=== PATIENT | female | born 1975 | race Two or more races ===

== ENCOUNTER 2019-03-08 12:31 | Emergency (ER) | payer SELFPAY ==
[~2019-03-08] VITALS: Ht 132.1 cm; Wt 68.0 kg
[2019-03-08 14:05] VITALS: BP 149/76
[2019-03-08] MEDS ORDERED: IBUPROFEN 800 MG TAB PO ONE (16:45)
== END 2019-03-08 17:06 | disposition home or self-care (01) ==
LOC: ER 12:31
DX: S39.012A Strain of muscle, fascia and tendon of lower back, initial encounter (principal); Z90.710 Acquired absence of both cervix and uterus; X50.1XXA Overexertion from prolonged static or awkward postures, initial encounter; Y93.89 Activity, other specified; Y99.8 Other external cause status; Y92.89 Other specified places as the place of occurrence of the external cause